=== PATIENT | male | born 1960 | race Caucasian/White ===

== ENCOUNTER 2017-01-06 08:44 | Emergency (ER) | payer OTHER ==
[2017-01-06 09:58] LABS: HEMOGLOBIN 13.4 gm/dl (14.0-17.5); RED BLOOD COUNT 4.58 M/UL (4.20-5.50); WHITE BLOOD COUNT 6.2 K/UL (4.5-11.0)
[2017-01-06 10:28] LABS: BUN/CREATININE RATIO 18 (0-10)
== END 2017-01-06 17:45 ==
LOC: ER1 08:44
PROVIDERS: Physician Assistant
DX: G45.9 Transient cerebral ischemic attack, unspecified (principal); R42 Dizziness and giddiness; I10 Essential (primary) hypertension; Z87.442 Personal history of urinary calculi; Z79.899 Other long term (current) drug therapy
CPT/HCPCS: 36415; 70496; 70498; 71010; 80053; 81001; 82550; 82553; 83874; 84484; 85025; 93005; 99285; J7050; Q9963